=== PATIENT | male | born 1985 | race Asian ===

== ENCOUNTER 2017-07-21 18:39 | Emergency (ER) | payer SELFPAY ==
[~2017-07-21] VITALS: Ht 182.9 cm; Wt 97.7 kg
[2017-07-21 18:40] VITALS: BP 147/93
== END 2017-07-21 21:18 | disposition left against medical advice (07) ==
LOC: EMS 18:40
DX: Z53.21 Procedure and treatment not carried out due to patient leaving prior to being seen by health care provider (principal)